=== PATIENT | male | born 1975 | race Hispanic/Latino ===

== ENCOUNTER 2021-05-11 07:44 | Day surgery (SDC) | payer OTHER ==
[2021-05-11 08:45] LABS: Basophils % (Auto) 0.3 % (0.0-1.8); Eosinophils % (Auto) 0.7 % (0.0-4.3); Hematocrit 47.3 % (35.5-45.6); Hemoglobin 15.7 gm/dl (11.8-15.2); Lymphocytes % (Auto) 33.1 % (13.4-35.0); Mean Corpuscular HGB Conc 33 % (32-34); Mean Corpuscular Volume 87 fl (84-94); Monocytes # (Auto) 0.6 K/mm3 (0.0-0.8); Monocytes % (Auto) 9.3 % (0.0-7.3); Platelet Count 207 K/mm3 (140-440); Red Blood Count 5.43 M/mm3 (3.65-5.03); Red Cell Distribution Width 13.1 % (13.2-15.2)
[2021-05-11 08:56] LABS: INR 0.98 (0.87-1.13)
[2021-05-11 08:57] LABS: BUN/Creatinine Ratio 12; Blood Urea Nitrogen 14 mg/dL (9-20); Calcium 9.1 mg/dL (8.4-10.2); Hemolysis Index 13; Partial Thromboplastin Time 29.5 Sec. (24.2-36.6)
[2021-05-11] MEDS ORDERED: SODIUM CHLORIDE 0.9% 500 ML 500 ML IV SCH (09:00)
[2021-05-11] MEDS ORDERED: HEPARIN 10,000 UNITS/10 ML VIAL ONE (09:32)
[2021-05-11] MEDS ORDERED: HEPARIN/NS 5000 UNIT/500ML 1,000 ML IR ONE (09:32)
[2021-05-11] MEDS ORDERED: LIDOCAINE (2%) 20 MG/1 ML VIAL 20 ML MDV INFILTRATI ONE (09:33)
[2021-05-11] MEDS ORDERED: VERAPAMIL 5 MG/2 ML INJ ONE (09:33)
[2021-05-11] MEDS ORDERED: NITROGLYCERIN SYRINGE 3 ML ONE (09:36)
[2021-05-11] MEDS: MIDAZOLAM 2 MG/2 ML INJ ONE ×2 (09:50→09:56)
[2021-05-11] MEDS: fentaNYL 100 MCG/2 ML INJ ONE ×2 (09:50→09:56)
--- NOTE | 2021-05-11 10:17 | Short Stay Summary ---
Short Stay Documentation Date of service: 05/11/21 - History H&P: obtained from office - Allergies and Medications Current Medications: Allergies Penicillins Allergy (Intermediate, Verified 05/11/21 08:15) Hives Home Medications Medication Instructions Recorded Confirmed Last Taken Type Amlodipine Besylate [Norvasc] 5 mg PO DAILY 05/11/21 05/11/21 05/11/21 History Active Medications Sodium Chloride (Nacl 0.9% 500 Ml) 500 mls @ 50 mls/hr IV DIRECT MALGORZATA Stop: 05/11/21 18:59 - Brief post op/procedure progress note Date of procedure: 05/11/21 - Disposition Condition at discharge: Good Short Stay Discharge Plan Activity: no restrictions Weight Bearing Status: Non-Weight Bearing Diet: regular Follow up with: PRIMARY CARE, [Primary Care Provider] - 7 Days
--- NOTE | 2021-05-11 10:28 | Electrocardiograph Report ---
[facility] Test Date: 2021-05-11 Test Time: 08:12:31 Pat Name: PHOEBE SCOTT Department: Room: Gender: [facility] Nurse: CECIL : 1975 Requested By: CRISTOBAL JIMÉNEZ Order Number: [id number] Reading MD: Spenser Chen Measurements Intervals [place] Rate: 83 P: 68 [place]: 157 QRS: 69 QRSD: 102 T: 42 QT: 388 QTc: 456 Interpretive Statements Sinus rhythm Ventricular premature complex nonspecific st-t No previous ECG available for comparison Electronically Signed On 05-11-2021 10:28:22 EST by Spenser Chen
[2021-05-11] MEDS ORDERED: HYDROcodone/ACETAMINOPHEN 5-325 MG TAB PO PRN (10:30)
[2021-05-11] MEDS ORDERED: traMADol 50 MG TAB PO PRN (10:30)
--- NOTE | 2021-05-11 11:17 | Cardiac Catherization Report ---
DATE OF PROCEDURE: 05/11/2021 CORONARY ANGIOGRAM REPORT DATE OF PROCEDURE: 05/11/2021 PROCEDURES PERFORMED: 1. Selective left and right coronary angiogram. 2. Left ventriculogram. RECREATION ATTENDANT SUPERVISOR: Timothy Pitt MD INDICATIONS: The patient is a 45-year-old male with premature coronary artery disease. Several of his family members including his parents had premature CAD. The patient presented to the clinic with mid substernal chest pain radiating to his jaw, even with minimal exertion. He underwent a treadmill stress test and had similar symptoms. In view of the classic symptoms and multiple risk factors, we decided to proceed with left heart catheterization. SEDATION DETAILS: Versed and fentanyl was given under my direct supervision. The patient was monitored a while on sedation. Sedation start time 9:50 a.m., sedation end time 10:04 a.m. Total sedation time was 14 minutes. Coronary angiogram details, please use my previous templates for left heart catheterization via right radial artery. FINDINGS: 1. Hemodynamics: AO 121/91, LV 121/11, LVEDP was 11. 2. Left ventriculogram done in the [place] projection shows normal LV systolic function, EF greater than 55%. ANGIOGRAM DETAILS: 1. Left main is angiographically normal. 2. LAD is angiographically normal. 3. Circumflex is angiographically normal. 4. Her right coronary artery is a large, dominant vessel, angiographically normal. IMPRESSION: 1. Essentially normal coronary arteries. 2. Normal left ventricular function. PLAN: 1. Aggressive risk factor modification. 2. The patient reassured. 3. Evaluate for alternative causes for the patient's symptoms. TID: [id number] RECEIPT: [id number] RR/STD
[2021-05-11 12:35] VITALS: BP 131/81
== END 2021-05-11 13:30 | disposition home or self-care (01) ==
LOC: CATHLABREC 07:44
PROVIDERS: ATTEND Internal Medicine Cardiovascular Disease
DX: I25.10 Atherosclerotic heart disease of native coronary artery without angina pectoris (principal); R07.9 Chest pain, unspecified; I10 Essential (primary) hypertension; J45.909 Unspecified asthma, uncomplicated; G47.30 Sleep apnea, unspecified; F32.9 Major depressive disorder, single episode, unspecified; Z88.0 Allergy status to penicillin; Z79.899 Other long term (current) drug therapy; Z80.42 Family history of malignant neoplasm of prostate; Z82.49 Family history of ischemic heart disease and other diseases of the circulatory system
CPT/HCPCS: 36415; 80048; 85025; 85610; 85730; 93005; 93010; 93458; 99156; C1894; J1644; J1815; J2250; J3010; J3490; J7040; Q9967